=== PATIENT | male | born 2000 | race Caucasian/White ===

== ENCOUNTER 2018-08-09 12:07 | Emergency (ER) | payer OTHER ==
[2018-08-09 12:14] VITALS: BP 152/77
[2018-08-09] MEDS ORDERED: IBUPROFEN 600 MG TAB PO ONE (12:56)
[2018-08-09] MEDS ORDERED: ACETAMINOPHEN 500 MG TAB PO ONE (12:57)
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
== END 2018-08-09 13:35 | disposition home or self-care (01) ==
PROC: 2W3EX1Z Immobilization of Right Hand using Splint (ICD-10-PCS; principal; 2018-08-09)
DX: S62.646A Nondisplaced fracture of proximal phalanx of right little finger, initial encounter for closed fracture (principal); W22.10XA Striking against or struck by unspecified automobile airbag, initial encounter; V43.02XA Car driver injured in collision with other type car in nontraffic accident, initial encounter; Y92.410 Unspecified street and highway as the place of occurrence of the external cause; F17.200 Nicotine dependence, unspecified, uncomplicated